=== PATIENT | male | born 1965 | race African-American/Black ===

== ENCOUNTER 2017-11-05 17:40 | Emergency (ER) | payer MEDICAID ==
[~2017-11-05] VITALS: Ht 177.8 cm; Wt 74.8 kg
--- NOTE | 2017-11-05 18:00 | NUR ---
PT BIB [facility] WITH A C/O ETOH. PT WAS FOUND SITTING ON THE SIDEWALK. PT IS COLD TO THE TOUCH. BLOOD SUGAR IN THE FIELD WAS 107. PT HAS 18G IV RAC TALENT DEVELOPMENT SPECIALIST. PT ARRIVED WITH 1L NS INFUSING. PT IS ON THE MONITOR AND CONTINUOUS PULSE OX.
[2017-11-05 18:45] LABS: BASOPHILS % (AUTO) 0.4 % (0.0-2.0); EOSINOPHILS # (AUTO) 0.2 /CMM (0.0-0.7); EOSINOPHILS % (AUTO) 3.1 % (0.0-6.0); HEMATOCRIT 26 % (39-51); LYMPHOCYTES # (AUTO) 1.2 /CMM (0.8-4.8); LYMPHOCYTES % (AUTO) 19.8 % (20.0-44.0); MEAN CORPUSCULAR HEMOGLOBIN 33 PG (26.0-33.0); MEAN CORPUSCULAR HGB CONC 35 g/dl (31.0-36.0); MEAN CORPUSCULAR VOLUME 96 fL (80-96); MONOCYTES # (AUTO) 0.4 /CMM (0.1-1.30); MONOCYTES % (AUTO) 6.4 % (2.0-12.0); NEUTROPHILS # (AUTO) 4.1 /CMM (1.8-8.9); NEUTROPHILS % (AUTO) 70.3 % (43.0-81.0); PLATELET COUNT (AUTO) 286 /CMM (150-450); RDW COEFFICIENT OF VARIATION 14.4 (11.5-15.0); WHITE BLOOD COUNT (AUTO) 5.9 K/uL (4.3-11.0)
[2017-11-05 19:02] LABS: CALCIUM, SERUM 8.2 mg/dL (8.5-10.1); CARBON DIOXIDE 19 mmol/L (21-32); CHLORIDE 103 mmol/L (98-107); CREATININE 0.9 mg/dL (0.6-1.3); GLUCOSE 123 mg/dL (74-106); POTASSIUM 4.4 mmol/L (3.5-5.1); SODIUM SERUM 135 mmol/L (136-145); UREA NITROGEN, BLOOD 22 mg/dL (7-18)
--- NOTE | 2017-11-05 19:10 | NUR ---
PT APPEARS TO BE RESTING COMFORTABLY. PT IS ON THE MONITOR AND CONTINUOUS PULSE OX.
[2017-11-05 19:15] LABS: ALANINE AMINOTRANSFERASE 18 U/L (12-78); ALBUMIN 2.7 g/dL (3.4-5.0); ALCOHOL, BLOOD 341 mg/dL (0-0); ALKALINE PHOSPHATASE 148 U/L (46-116); ASPARTATE AMINOTRANSFERASE 28 U/L (15-37); BILIRUBIN,DIRECT 0.1 mg/dL (0.0-0.2); BILIRUBIN,TOTAL 0.1 mg/dL (0.2-1.0); TOTAL PROTEIN, SERUM 7.6 g/dL (6.4-8.2)
[2017-11-05 19:17] LABS: SALICYLATE 2.1 mg/dL (2.8-20.0)
[2017-11-05 19:18] LABS: ACETAMINOPHEN < 2 ug/ml (10-30)
[2017-11-05] MEDS ORDERED: IV NS 0.9% 1,000 ML BAG IV ONE (20:00)
--- NOTE | 2017-11-05 20:22 | NUR ---
PT APPEARS TO BE RESTING COMFORTABLY. PT IS ON THE MONITOR AND CONTINUOUS PULSE OX. NO S/S OF PAIN OR DISTRESS NOTED. RESP EVEN AND UNLABORED.
--- NOTE | 2017-11-05 23:23 | NUR ---
PT APPEARS TO BE RESTING COMFORTABLY. PT IS EASILY AROUSED. VSS. PT IS ON THE MONITOR AND CONTINUOUS PULSE OX. WILL CONTINUE TO MONITOR THE PT.
--- NOTE | 2017-11-06 00:21 | NUR ---
URINE SAMPLE OBTAINED AND LAB CALLED FOR P/U
[2017-11-06 00:42] LABS: APPEARANCE,URINE CLEAR (CLEAR); BILIRUBIN,URINE NEGATIVE (NEGATIVE); BLOOD, URINE NEGATIVE Ery/uL (NEGATIVE); COLOR,URINE YELLOW (YELLOW); KETONES,URINE NEGATIVE (NEGATIVE); LEUKOCYTE ESTERASE ,URINE NEGATIVE (NEGATIVE); NITRITE, URINE NEGATIVE (NEGATIVE); PH,URINE 5.5 (5.0-8.0); PROTEIN,URINE NEGATIVE (NEGATIVE); UGLUCOSE NEGATIVE (NEGATIVE); UROBILINOGEN,URINE 0.2 EU/dL (0.2)
--- NOTE | 2017-11-06 00:58 | NUR ---
PT APPEARS TO BE RESTING COMFORTABLY. NO S/S OF PAIN OR DISTRESS. PT IS REQUESTING THAT HIS BILATERAL FEET DRSG'S BE CHANGED. WILL NOTIFY THE MD.
--- NOTE | 2017-11-06 01:44 | NUR ---
PT AMBULATED TO THE BATHROOM WITH A STEADY GAIT. TREY QUINN WAS WITH PT TO ASSIST IF NEEDED. PT THEN AMBULATED BACK TO BED. PT REQUESTED TO HAVE HIS WOUNDS ON HIS BILATERAL FEET LOOKED AT. DRESSINGS REMOVED. PT HAS TWO WEEPING WOUNDS ON BACK OF BILATERAL ANKLES. WET TO DRY DRESSING ORDERED BY KATELYN EDOUARD. PT WAS INSTRUCTED TO F/U WITH HIS PMD FOR WOUND CARE REFERRAL. PT STATED THAT HE HAS BEEN GOING TO URGENT CARE EVERY WEEK TO GET THE WOUNDS TAKEN CARE OF.
--- NOTE | 2017-11-06 01:56 | NUR ---
WOUND CARE DONE AND WOUNDS REDRESSED BY TREY QUINN.
--- NOTE | 2017-11-06 02:12 | NUR ---
DR. HDEZ IS AT THE BEDSIDE.
--- NOTE | 2017-11-06 02:12 | NUR ---
REPORT GIVEN TO ED, BUSINESS ACCOUNT LEADER FOR IVA.
--- NOTE | 2017-11-06 04:25 | NUR ---
Patient discharged to home in stable condition. Written and verbal after care instructions given. Patient verbalizes understanding of instruction. IV removed. Catheter intact and site benign. Pressure and 4x4 applied to site. No bleeding noted. pt [id number] no acute distress noted, resp even and unlabored. advice pt not to drive or operate any machinery due to alcohol intoxication. pt verbalize understanding.
--- NOTE | 2017-11-06 04:26 | NUR ---
pt denies being homeless.
[2017-11-06 04:28] VITALS: BP 124/79
== END 2017-11-06 04:28 | disposition home or self-care (01) ==
LOC: ER 17:45
DX: F10.129 Alcohol abuse with intoxication, unspecified (principal); E11.9 Type 2 diabetes mellitus without complications; Z59.0 Homelessness
CPT/HCPCS: 36415; 80048-TC; 80076-TC; 80305; 81000-TC; 82962-TC; 85025-TC; A4606; G0480; J7030; Z7610